=== PATIENT | female | born 1960 | race Asian ===

== ENCOUNTER 2018-07-14 10:22 | Emergency (ER) | payer BC ==
--- NOTE | 2018-07-14 10:33 | Emergency Department Record ---
History of Present Illness - General Chief Complaint: Ankle/Foot Injury Stated Complaint: ANKLE INJURY, URI Time Seen by Provider: 07/14/18 10:27 Source: Patient Mode of Arrival: Ambulatory Limitations: No limitations - History of Present Illness Initial Comments: 57 yo female presents with several concerns. She states the reason she presented to the ED was a cough for the last 2 days. She has brownish sputum. No fevers. The cough is persistent and kept her up all night. She has had right ankle problems since December. She twisted her ankle at that time. She gets pain on an off since December of 2017. She has had several weeks of left shoulder pain with abduction and reaching backward. She has seen blood in her urine several times in the last one month. NO fevers. She has a history of renal stones. MD Complaint: Cough, Other (1. Left should pain with moving, 2. ankle pain since December, 3. Blood in her urine over a month, intermittent) -: Days(s) Quality: Aching Consistency: Constant Improves With: Nothing Worsens With: Nothing Associated Symptoms: Cough Treatments Prior to Arrival: None - Related Data Previous Rx's Medication Instructions Recorded Benzonatate [Tessalon Perle] 100 mg PO QID #20 capsule 07/14/18 Cefdinir [Omnicef] 300 mg PO BID #14 cap 07/14/18 Allergies Allergy/AdvReac Type Severity Reaction Status Date / Time Iodinated Contrast- Oral and Allergy ANAPHYLAXIS Verified 07/14/18 10:31 IV Dye Penicillins Allergy RASH Verified 07/14/18 10:31 Review of Systems Constitutional: Denies: Chills, Fever, Malaise, Weakness Eyes: Denies: Eye discharge, Eye pain, Photophobia, Vision change ENT: Reports: Congestion, Throat pain. Denies: Dental pain, Ear pain, Epistaxis Respiratory: Reports: Cough, Dyspnea, Other. Denies: Hemoptysis, Stridor, Wheezes Cardiovascular: Denies: Chest pain, Edema, Palpitations, Syncope Endocrine: Denies: Fatigue Gastrointestinal: Denies: Abdominal pain, Diarrhea, Nausea, Vomiting Genitourinary: Denies: Dysuria, Urgency Musculoskeletal: Reports: As per HPI, Arthralgia, Back pain, Joint swelling, Myalgia. Denies: Neck pain Skin: Denies: Bruising, Change in color, Rash Neurological: Reports: Headache. Denies: Confusion, Numbness, Tremors, Vertigo , Weakness Psychiatric: Denies: Anxiety Hematological/Lymphatic: Denies: Easy bleeding, Easy bruising Physical Exam - General General Appearance: Alert, Oriented x3, Cooperative, No acute distress Limitations: No limitations - Head Head exam: Atraumatic, Normal inspection - Eye Eye exam: Normal appearance, PERRL. negative: Conjunctival injection, Scleral icterus - ENT ENT exam: Normal exam, Mucous membranes moist, Normal orophraynx Ear exam: Normal external inspection Nasal Exam: Normal inspection Mouth exam: Normal external inspection Throat exam: Normal inspection. negative: Tonsillar erythema, Tonsillomegaly, R peritonsillar mass, L peritonsillar mass - Neck Neck exam: Normal inspection. negative: Lymphadenopathy, Tenderness - Respiratory Respiratory exam: Normal lung sounds bilaterally. negative: Accessory muscle use, Chest wall tenderness, Decreased breath sounds, Prolonged expiratory, Respiratory distress, Rhonchi, Stridor, Wheezes - Cardiovascular Cardiovascular Exam: Regular rate, Normal rhythm, Normal heart sounds - GI/Abdominal GI/Abdominal exam: Soft. negative: Distended, Tenderness - Rectal Rectal exam: Deferred - exam: Deferred - Extremities Extremities exam: Normal inspection, Full ROM, Tenderness (tender medial ankle) . negative: Calf tenderness, Joint swelling, Pedal edema - Back Back exam: Denies: CVA tenderness (R), CVA tenderness (L) - Neurological Neurological exam: Alert - Psychiatric Psychiatric exam: Normal affect, Normal mood - Skin Skin exam: Dry, Intact, Normal color, Warm Course - Reevaluation(s) Reevaluation #1: The UA is normal for any acute infection or blood The CXR is normal We discussed the chronic shoulder and ankle pain I recommended seeing her doctor given she may need further work up with MRI given XR was normal 07/14/18 10:59 Disposition Disposition: Discharge Clinical Impression: Arthralgia, Bronchitis Disposition: Home, Self-Care Condition: (1) Good Instructions: Acute Bronchitis (ED), Arthralgia (ED) Additional Instructions: Call your doctor for the next available follow up appointment to discuss further work up of your ankle and shoulder pain You will need a recheck of your blood pressure with your family doctor as well Return to the ER for a recheck if worse, any new concerns or questions Take the prescriptions provided as directed Review this ER visit and the tests performed with your family doctor Prescriptions: Benzonatate [Tessalon Perle] 100 mg PO QID #20 capsule Cefdinir [Omnicef] 300 mg PO BID #14 cap Forms: Patient Portal Access Time of Disposition: 11:03 Quality - Quality Measures Quality Measures: N/A - Blood Pressure Screening Does Patient Have Any of the Following: No Blood Pressure Classification: Hypertensive Reading Systolic Measurement: 155 Diastolic Measurement: 94 Screening for High Blood Pressure: < Pre-Hypertensive BP, F/U Documented > [ [id number]] Pre-Hypertensive Follow-up Interventions: Referral to alternative/primary care provider.
[2018-07-14 10:41] LABS: URINE APPEARANCE CLEAR; URINE BILIRUBIN NEGATIVE (NEGATIVE); URINE BLOOD TRACE-I (NEGATIVE); URINE COLOR YELLOW; URINE GLUCOSE (UA) NEGATIVE (NEGATIVE); URINE KETONE NEGATIVE (NEGATIVE); URINE LEUKOCYTE ESTERASE TRACE (NEGATIVE); URINE NITRITE NEGATIVE (NEGATIVE); URINE PROTEIN NEGATIVE (NEGATIVE); URINE UROBILINOGEN 0.2 E.U./dL (0.20 - 1.00)
[2018-07-14 10:49] LABS: URINE RBC 0 - 2 (NONE SEEN); URINE WBC 0 - 2 (0-2/hpf)
== END 2018-07-14 11:22 | disposition home or self-care (01) ==
LOC: ER 10:22
DX: J20.9 Acute bronchitis, unspecified (principal); M25.571 Pain in right ankle and joints of right foot; M25.512 Pain in left shoulder
CPT/HCPCS: 71046; 81001; 99283